=== PATIENT | male | born 2000 | race African-American/Black ===

== ENCOUNTER 2020-03-14 16:53 | Emergency (ER) | payer OTHER, BC, SELFPAY ==
--- NOTE | ~2020-03-14 | XR_ITS ---
EXAMINATION: XR hand RT min 3V INDICATION: Right hand pain, initial encounter TECHNIQUE: Three views of the right hand are obtained. COMPARISON: None FINDINGS: There is acute, traumatic, closed, mildly comminuted fracture at the proximal aspect of the fifth metacarpal. There are 3 mm of separation of the fracture fragments. There is approximately 30 degrees of palmar angulation at the fracture site. Joint space alignment appears normal. Soft tissue swelling is seen near the fracture. No additional acute osseous findings are evident. IMPRESSION: 1. Acute fracture of the proximal fifth metacarpal with angulation. Reviewed, dictated and finalized at location A.
--- NOTE | 2020-03-14 17:11 | ED.UPPEXIN ---
HPI - Extremity Injury (Upper) General Chief Complaint: Extremity Injury, Upper Stated Complaint: right hand injury Time Seen by Provider: 03/14/20 17:11 Source: patient Mode of arrival: ambulatory Limitations: no limitations History of Present Illness HPI narrative: Vernon Bello is a 20 yo male with PMH of heart palpitations who comes to express care for right hand evaluation after slip and fall yesterday. Hand is swelling and pain is rated at 9 out of 10-if pain is unrelieved with [id number] meds Related Data Home Medications Medication Instructions Recorded Confirmed No Home Medications 03/14/20 03/14/20 Allergies Allergy/AdvReac Type Severity Reaction Status Date / Time No Known Allergies Allergy Unverified 05/17/11 18:28 Review of Systems Review of Systems: Narrative: CONSTITUTIONAL: Denies fever, chills, sweats. EYES: Denies visual changes, redness, discharge. ENT: Denies rhinorrhea, congestion, sore throat, otalgia. CARDIOVASCULAR: Denies chest pain, palpitations, edema. RESPIRATORY: Denies dyspnea, wheezing, cough GASTROINTESTINAL: Denies abdominal pain, nausea, vomiting, diarrhea. GENITOURINARY: Denies dysuria, hematuria, abnormal discharge SKIN: Denies rash or itching. NEUROLOGIC: Denies numbness, or focal weakness. PSYCHIATRIC: Denies anxiety or depression. Right hand pain and swelling PMFSH Family History Family History Other Hypertension Social History Social History Smoking status: Current every day smoker Alcohol intake: current Gender identity (if verbalized by the patient): Male Comments At time of signature, I agree with nursing past medical, surgical, social and family history. There is no relevant family history pertinent to the presenting complaint. Noted elevated BP, patient in pain, to follow up with pcp Exam Narrative: Exam Narrative: GENERAL: This is a well-nourished, well-developed patient, in moderate distress. HEAD: normocephalic, atraumatic. EYES: Sclera clear/white. Vision is grossly intact. EARS: External ears normal. Hearing grossly intact. NOSE: External nose normal without nasal discharge, nares without redness, no rhinorrhea. THROAT: Mucous membranes moist, NECK: Neck supple, CARDIOVASCULAR: Regular rate and rhythm without murmurs, gallops, or rubs. RESPIRATORY: Clear to auscultation. Breath sounds equal bilaterally. No wheezes, rales, or rhonchi. GASTROINTESTINAL: Abdomen soft, SKIN: warm, intact with no suspicious lesions or rash, good texture and turgor. NEURO: awake, alert, and oriented to person, place and time. There were no obvious focal neurologic abnormalities. Steady gait EXTREMITIES: Normal range of motion on L. R hand pain with movement - flexion and extension,unable to do complete finger opposition, 2+ swelling dorsum below fingers 4/5 BACK: Nontender without deformity Course Course Emergency Course: Xray of R hand- Vital Signs Vital signs: Vital Signs Temperature 98.9 F 03/14/20 17:12 Pulse Rate 93 03/14/20 17:12 Respiratory Rate 18 03/14/20 17:12 Blood Pressure 152/78 H 03/14/20 17:12 Pulse Oximetry 97 03/14/20 17:12 Temperature 98.9 F 03/14/20 17:12 Pulse Rate 93 03/14/20 17:12 Respiratory Rate 18 03/14/20 17:12 Blood Pressure 152/78 H 03/14/20 17:12 Pulse Oximetry 97 03/14/20 17:12 Procedures Orthopedic Splinting/Casting Injury #1: Splinting/Casting Date: 03/14/20 Splinting/Casting Time: 18:15 Side: right Upper Extremity Injury Location: hand Upper Extremity Immobilizer: ulnar gutter Splint: customized in ED OCL: short arm Pre-Procedure Neuro Vascular Exam: normal Post-Procedure Neuro Vascular Exam: normal Additional Comments: Instructions on care given to patient MDM - Extremity Injury (Upper) Differenti
[2020-03-14 17:12] VITALS: BP 152/78; PULSE 93; RESP 18; TEMP 37.2; O2SAT 97
== END 2020-03-14 18:15 | disposition home or self-care (01) ==
PROVIDERS: Emergency Provider Nurse Practitioner
DX: S62.396A Other fracture of fifth metacarpal bone, right hand, initial encounter for closed fracture (principal); S62.316A Displaced fracture of base of fifth metacarpal bone, right hand, initial encounter for closed fracture
CPT/HCPCS: 29125; 73130; 99214; G0463

== ENCOUNTER 2023-05-02 21:16 | Observation (INO) | payer BC, SELFPAY ==
--- NOTE | ~2023-05-02 | XR_ITS ---
EXAMINATION: XR chest 1V portable Exam Date/Time: 05/02/2023 21:52 CDT HISTORY: syncope vs seizure Comparison: None. RESULT: Lines, tubes, and devices: None. Lungs and pleura: Clear. Cardiomediastinal silhouette: Normal. Other: No acute osseous or upper abdominal finding. IMPRESSION: No acute cardiopulmonary process. Reviewed, dictated and finalized at location K.
--- NOTE | ~2023-05-02 | CT_ITS ---
EXAMINATION: CT brain wo con DATE: 05/02/2023 22:25 INDICATION: seizure? syncope? . TECHNIQUE: Computed tomography (CT) of the head was performed without intravenous contrast. The mA wa s adjusted according to patient size. Iterative reconstruction technique was employed. The dose-lengt h product was 681.00 mGy-cm. COMPARISON: None. FINDINGS: No acute intracranial hemorrhage or extra-axial fluid collection. No hydrocephalus, mass, or herniation. No acute ischemic infarct. Unremarkable dural venous sinus attenuation. No acute osseous abnormality. The aerated spaces are clear. IMPRESSION: No acute intracranial process. Reviewed, dictated and finalized at location K.
--- NOTE | ~2023-05-02 | MR_ITS ---
EXAMINATION: MR brain/brain stem wo con DATE: 05/06/2023 11:21 INDICATION: New onset seizure. TECHNIQUE: Magnetic resonance imaging (MRI) of the brain and brainstem was performed without intraven ous contrast. COMPARISON: Head CT 05/02/2023 FINDINGS: The hippocampi are normal and symmetric. There is no intracranial hemorrhage, acute infarct ion, or abnormal intracranial mass lesion. The ventricles are normal in size. There is mild mucosal t hickening in the ethmoid sinuses. The orbits are normal. The mastoid air cells are normal. IMPRESSION: 1. Normal brain. Reviewed, dictated and finalized at location A. IMPRESSION: 1. Normal brain.
[2023-05-02 21:18] VITALS: BP 99/59; PULSE 98; RESP 15; TEMP 36.4; O2SAT 98
--- NOTE | 2023-05-02 21:22 | ECG_ITS ---
Measurements Intervals [place] Rate: 92 P: 82 [place]: 144 QRS: 86 QRSD: 82 T: 40 QT: 319 QTc: 395 Interpretive Statements SINUS RHYTHM WITH OCCASIONAL VENTRICULAR PREMATURE COMPLEXES ST ELEVATION, CONSIDER ANTEROLATERAL INJURY NO PREVIOUS ECG AVAILABLE FOR COMPARISON Electronically Signed On 05-03-2023 8:57:28 CDT by Marie Gracia M.D.
--- NOTE | 2023-05-02 21:47 | ED.SEIZURE ---
HPI - Seizure General Chief Complaint: Seizure Stated Complaint: witnessed seizure after smoking pot Time Seen by Provider: 05/02/23 21:40 History of Present Illness HPI Narrative: Patient is a 23-year-old male presenting with possible seizure activity. Patient states that he was at a bar and he started smoking a blunt with a friend. States that he felt lightheaded and then he was noted to lose consciousness multiple times. He was told that he may have been having seizure activity. No tongue biting or urinary incontinence. Patient states that he does not remember the events but he remembers waking up. States that he felt confused for about 10 seconds and then returned to baseline. No numbness, weakness, vision or speech changes. No recent fevers, headaches, neck pain or stiffness. He denies any chest pain or shortness of breath. States that he has had palpitations in the past. He reports a similar episode approximately 2 weeks ago for which he was not seen. Currently, he states that he feels normal. He denies any complaints at this time. Related Data Home Medications Medication Instructions Recorded Confirmed No Home Medications 03/14/20 05/03/23 Allergies Allergy/AdvReac Type Severity Reaction Status Date / Time No Known Allergies Allergy Unverified 03/23/20 09:41 Review of Systems Review of Systems: All systems reviewed & are unremarkable except as noted in HPI and below PMFSH Past Medical History Medical History (Updated 05/05/23 @ 17:46 by Isabel Henderson MD) BMI 23.0-23.9, adult H/O cardiac arrhythmia Family History Family History Grandparent Hypertension Social History Social History Years smoked: 4 Smoking status: Current every day smoker Alcohol intake: current Drinks per week: 7 Substance use: current Substance use type: crack/cocaine Lack of Transportation: No Lack of Food: Never True Current Housing: I Have Housing Concerned About Future Housing: No Difficulty Paying Gas/Electric Bills: No Difficulty Paying for Meds: No Currently Unemployed: YES Education: High School Diploma/GED Difficulty w/ Childcare or Family Care: No Living arrangements: with family Gender identity (if verbalized by the patient): Male Spiritual care concerns: No Exam Narrative: GENERAL: Well-appearing, well-nourished, and in no acute distress. Pleasant and cooperative HEAD: Normocephalic, atraumatic. EYES: PERRLA and EOMI. ENT: Nares clear, no rhinorrhea or epistaxis. Mucous membranes moist. NECK: Supple. CHEST: Clear to auscultation. No respiratory distress. 2 healed midline scars anterior chest with keloid formation HEART: Regular rate and rhythm. No murmur heard. Normal peripheral pulses. ABDOMEN: Soft, nontender, nondistended EXTREMITIES: Normal range of motion. No edema. SKIN: Warm, dry, no rash. NEURO: No focal deficits. Alert and oriented x3. 5 out of 5 strength in all extremities, no sensory deficits, no facial droop, no pronator drift PSYCH: Normal mood and affect. Course Vital Signs Vital signs: Vital Signs Temperature 97.6 F 05/02/23 21:18 Pulse Rate 98 05/02/23 21:18 Respiratory Rate 15 05/02/23 21:18 Blood Pressure 99/59 L 05/02/23 21:18 Pulse Oximetry 98 05/02/23 21:18 Oxygen Delivery Room Air 05/02/23 21:18 Temperature 97.3 F L 05/05/23 16:00 Pulse Rate 63 05/05/23 16:00 Respiratory Rate 16 05/05/23 16:00 Blood Pressure 116/68 05/05/23 16:00 Pulse Oximetry 98 05/05/23 16:00 Oxygen Delivery Room Air 05/05/23 04:00 MDM - Seizure MDM Narrative Medical decision making narrative: Patient is a 23-year-old male presenting with possible seizure activity. Blood pressure somewhat soft 90s over 50s. Remainder of vitals are within normal limits. Exam remarkable for the above. Given the descrip
[2023-05-02 21:48] VITALS: BP 92/60; PULSE 68
[2023-05-02 21:49] VITALS: BP 98/67; PULSE 77
[2023-05-02 21:50] VITALS: BP 92/62; PULSE 100
[2023-05-02] MEDS: LACTATED RINGERS 1,000 ML 999 ML IV CONT (21:56)
[2023-05-02 22:02] LABS: Alanine Aminotransferase 21 U/L (6-50); Albumin Level 4.7 g/dL (3.5-5.1); Alkaline Phosphatase 93 U/L (38-126); Anion Gap 10 mmol/L (8-16); Aspartate Amino Transferase 29 U/L (17-59); Blood Urea Nitrogen 11 mg/dL (9-20); Calcium 9.7 mg/dL (8.4-10.2); Carbon Dioxide 27 mmol/L (22-30); Chloride 97 mmol/L (98-107); Estimated CRCL calculation 70 ml/min; Estimated Glomerular Filt Rate > 60; Glucose 113 mg/dL (65-110); Potassium 3.9 mmol/L (3.4-5.0); Sodium 134 mmol/L (137-145)
[2023-05-02 22:11] LABS: Partial Thromboplastin Time 22.7 SECONDS (22.3-36.8); Prothrombin Time 13.5 Seconds (11.1-14.7)
[2023-05-02 22:12] LABS: Basophils Absolute Auto 0.1 K/mm3 (0.0-0.1); Eosinophils Absolute Auto 0.2 K/mm3 (0-0.3); Eosinophils Percent Auto 3.3 % (0-4.4); Hematocrit 43.5 % (42.0-52.0); Hemoglobin 14.5 g/dL (14.0-18.0); Immature Granulocyte Absolute 0.06 K/mm3 (0.00-0.031); Lymphocytes Absolute Auto 1.47 K/mm3 (0.9-3.2); Lymphocytes Percent Auto 24.1 % (18.3-44.2); Mean Corpuscular HGB Conc 33.3 g/dl (32-36); Mean Corpuscular Hemoglobin 32.6 pg (26-34); Mean Corpuscular Volume 97.8 fl (80-100); Mean Platelet Volume 10.1 fl (7.4-10.4); Monocytes Absolute Auto 0.7 K/mm3 (0.1-0.6); Monocytes Percent Auto 11.3 % (2.6-8.5); Neutrophils Absolute Auto 3.6 K/mm3 (1.3-6.7); Neutrophils Percent Auto 59.3 % (45.5-73.1); Platelet Count Result 395 k/mm3 (150-375); Red Blood Count 4.45 M/mm3 (4.6-6.20); Red Cell Distribution Width 12.7 % (11.5-14.5); White Blood Count 6.1 K/mm3 (4.5-10.0)
[2023-05-02 22:21] LABS: Ethanol 33 mg/dL (<10)
[2023-05-02 22:22] LABS: Alanine Aminotransferase 19 U/L (6-50); Albumin Level 4.5 g/dL (3.5-5.1); Alkaline Phosphatase 91 U/L (38-126); Anion Gap 10 mmol/L (8-16); Aspartate Amino Transferase 28 U/L (17-59); Bilirubin,Total 0.9 mg/dL (0.2-1.3); Blood Urea Nitrogen 11 mg/dL (9-20); Calcium 9.6 mg/dL (8.4-10.2); Carbon Dioxide 25 mmol/L (22-30); Chloride 99 mmol/L (98-107); Estimated CRCL calculation 76 ml/min; Estimated Glomerular Filt Rate > 60; Glucose 114 mg/dL (65-110); Potassium 3.9 mmol/L (3.4-5.0); Sodium 134 mmol/L (137-145)
[2023-05-02 22:27] LABS: Lactic Acid Reflex 3.3 mmol/L (0.7-2.0)
[2023-05-02 22:33] LABS: Troponin I < 0.012 ng/mL (0.000-0.034)
[2023-05-02 23:00] VITALS: BP 95/43; PULSE 85; RESP 16; O2SAT 100
[2023-05-02 23:35] LABS: Appearance Urine Cloudy (Clear); Bacteria Urine None Seen /hpf; Bilirubin Urine 2+ (Negative); Blood Urine Negative (Negative); Color Urine Dark Yellow (Yellow); Glucose Urine UA Negative (Negative); Hyaline Casts Urine Present /lpf; Ketones Urine 1+ mg/dL (Negative); Leukocyte Esterase Ur Trace LEU/UL (Negative); Mucus Urine Present /lpf; Nitrate Urine Negative (Negative); Non Pathogenic Casts >20; Protein Urine 1+ mg/dL (Negative); RBC Urine 0-2 /hpf (0-2); Specific Grav Ur 1.028 (1.001-1.035); Squamous Epithelial Cell Urine None seen /hpf (Few); WBC Urine 0-5 /hpf; pH Urine 6.5 (5.0-9.0)
[2023-05-02 23:37] LABS: Add Urine Microscopic? YES
[2023-05-02 23:40] LABS: Amphetamine Screen Urine Negative (Negative); Barbiturate Screen Urine Negative (Negative); Benzodiazepines Screen Urine Negative (Negative); Cannabinoid Screen Urine Positive (Negative); Cocaine Screen Urine Positive (Negative); Methadone Screen Urine Negative (Negative); Opiate Screen Urine Negative (Negative); Phencyclidine Screen Urine Negative (Negative)
[2023-05-03] VITALS (19 sets, daily range): BP systolic 97–122; BP diastolic 54–78; PULSE 61–81; RESP 14–20; TEMP 36.4–36.9; O2SAT 97–100
--- NOTE | 2023-05-03 | ECHO_ITS ---
Patient Info Name: Vernon Bello Age: 23 years : 2000 Gender: Male Ht: 66 in Wt: 149 lbs BSA: 1.78 m2 HR: 76 bpm BP: 117 / 77 mmHg Heart Rhythm: Sinus Rhythm Technical Quality: Good Exam Date: 05/03/2023 2:54 PM Exam Location: [facility] Card Pulmonary Patient Status: Inpatient Admit Date: 05/03/2023 Staff Ordering Physician: Marie Gracia MD (blessing/marily) Financial Services Officer: Radha Pan RDCS Attending Provider: En Barajas MD Referring Physician: Basil BERGERON; Exam Type: CA echo doppler color flow Study Info Indications R55 - Syncope and collapse Complete two-dimensional, color flow and Doppler transthoracic echocardiogram is performed. Summary 1. Complete two-dimensional, color flow and Doppler transthoracic echocardiogram is performed. 2. Left ventricular chamber dimension is normal. 3. Left ventricular systolic function is normal, estimated at 65-70%. 4. Right ventricular systolic function is normal. 5. There is trace mitral valve regurgitation. 6. There is trace tricuspid valve regurgitation. 7. There is trace pulmonic regurgitation. Left Ventricle Left ventricular chamber dimension is normal. Left ventricular systolic function is normal, estimated at 65-70%. There is no increased left ventricular wall thickness. The left ventricular diastolic function is normal. Right Ventricle Right ventricular chamber dimension is normal. Right ventricular systolic function is normal. Left Atria Left atrial chamber dimension is normal. Right Atria Right atrial chamber dimension is normal. Atrial Septum Intact interatrial septum visualized by color flow imaging. Aortic Valve The aortic valve is trileaflet. There is no aortic valve stenosis. There is no aortic valve regurgitation. Pulmonic Valve The pulmonic valve is not well visualized. There is trace pulmonic regurgitation. Mitral Valve There is trace mitral valve regurgitation. Tricuspid Valve There is trace tricuspid valve regurgitation. Pericardium/Pleural There is no pericardial effusion. Inferior Vena Cava Dilated inferior vena cava with >50% collapse upon inspiration consistent with elevated right atrial pressure, 8 mmHg. Aorta The aortic root size at the sinus of Valsalva is normal. Left Ventricular Outflow Tract Name Value Normal LVOT 2D LVOT Diameter 2.0 cm LVOT Doppler LVOT Peak Gradient 3 mmHg LVOT Mean Gradient 2 mmHg LVOT VTI 18 cm LVOT VTI/AV VTI Ratio 0.7 LVOT Stroke Volume 58 ml LVOT CO 3.8 l/min LVOT CI 2.1 l/min/m2 Pulmonic Valve Name Value Normal RVOT Doppler RVOT Peak Gradient 1 mmHg PV Doppler PV Peak Gradient
[2023-05-03] MEDS: LACTATED RINGERS 1,000 ML 999 ML IV CONT (00:28)
[2023-05-03 01:09] LABS: Reflex Lactic Acid Yes or No Add Lactic
[2023-05-03 02:18] LABS: Troponin I < 0.012 ng/mL (0.000-0.034)
--- NOTE | 2023-05-03 02:27 | ECG_ITS ---
Measurements Intervals [place] Rate: 66 P: 56 MA: 153 QRS: 76 QRSD: 90 T: 27 QT: 361 QTc: 381 Interpretive Statements SINUS RHYTHM ST ELEVATION, CONSIDER ANTEROLATERAL INJURY COMPARED TO ECG 05/02/2023 21:28:16 NO SIGNIFICANT CHANGES Electronically Signed On 05-03-2023 9:01:03 CDT by Marie Gracia M.D.
--- NOTE | 2023-05-03 02:46 | ADMGEN ---
This patient, Vernon Bello, was admitted to IMU Room 205-01. Patient/family oriented to hospital policies and general routines including ID bracelet, bed and alarms, visiting hours, pain management, procedures, bathroom and other care routines, personal items, smoking policy, room service/diet, and visiting hours. Information on how to activate the Rapid Response Team has been discussed. Patient/Family are encouraged to report perceived risks to care and to ask questions if they do not understand what they are told or what they should do.
--- NOTE | 2023-05-03 10:38 | PM.CNCAR ---
Assessment and Plan Assessment and plan (1) Syncope: Code(s): R55 - Syncope and collapse Status: Acute Assessment and Plan: Echocardiogram already ordered and pending. Recommend to check orthostatic vital signs as well. Happened shortly after smoking a blunt, cocaine + as well, could be related to drug use. Noted to have seizure like activity at the time of the event. Recommend seizure workup as per the primary team. No significant arrhythmias noted on tele thus far. EKG on admission last night with sinus rhythm with occasional PVCs, ST elevations more noticeably in the anterolateral leads. Although this could be concerning for an acute myocardial injury, patient is without any chest pain, troponins are negative, and repeat EKG 5 hours later is stable and unchanged without any dynamic changes. Given his young age, I suspect these are more likely early repolarization changes rather than from an acute myocardial injury. Will obtain repeat EKG this morning. Echocardiogram pending to evaluate for underlying structural heart disease. Recommend 30 day event monitor at time of discharge. (2) Cocaine abuse: Code(s): F14.10 - Cocaine abuse, uncomplicated Status: Acute Assessment and Plan: Recommend abstinence. (3) Marijuana smoker: Code(s): F12.90 - Cannabis use, unspecified, uncomplicated Status: Acute Assessment and Plan: Recommend abstinence. History of Present Illness History of Present Illness Consult date/time: 05/03/23 10:38 Requesting physician: Isabel Henderson MD Consult reason: Other (Recurrent Syncope) Reason For Visit: Recurrent Syncope Narrative: We are consulted for recurrent syncope. This is a 23-year-old male who presented after syncopal episode. Patient states that last night around 8:15PM, he had smoked a blunt with a friend, and then became lightheaded and felt his vision going out. Patient states he lost consciousness and then would wake up briefly before losing consciousness again. His friends who were with him noticed seizure like activity. Patient reports having 4 syncopal episodes within a minute or so. Patient denies any chest pain, palpitations, shortness of breath. States he was feeling fine before the event. Currently he feels well. Troponins negative x 2. UDS positive for cocaine and cannabinoids. Alcohol level elevated at 33. Patient does admit to using cocaine once a week, last used on Saturday. Review of Systems Review of Systems: All systems reviewed & are unremarkable except as noted in HPI and below (HPI) [facility] Past Medical History Medical History (Updated 05/03/23 @ 10:44 by Marie Gracia MD) BMI 23.0-23.9, adult H/O cardiac arrhythmia Family History Family History Grandparent Hypertension Social History Social History Years smoked: 4 Smoking status: Current every day smoker Alcohol intake: current Drinks per week: 7 Substance use: current Substance use type: crack/cocaine Lack of Transportation: No Lack of Food: Never True Current Housing: I Have Housing Concerned About Future Housing: No Difficulty Paying Gas/Electric Bills: No Difficulty Paying for Meds: No Currently Unemployed: YES Education: High School Diploma/GED Difficulty w/ Childcare or Family Care: No Living arrangements: with family Gender identity (if verbalized by the patient): Male Spiritual care concerns: No Meds Home Medications and Allergies Home Medications Medication Instructions Recorded Confirmed Type No Home Medications 03/14/20 05/03/23 History Allergies Allergy/AdvReac Type Severity Reaction Status Date / Time No Known Allergies Allergy Unverified 03/23/20 09:41 Vital Signs Vital Signs - 24 hr 05/02/23 21:18 05/02/23 21:48 05/02/23 21:49 Temperature 36.4 C Pulse Rate 98 68 7
--- NOTE | 2023-05-03 10:51 | ECG_ITS ---
Measurements Intervals [place] Rate: 71 P: MD: 0 QRS: 70 QRSD: 94 T: -3 QT: 358 QTc: 391 Interpretive Statements SINUS RHYTHM ST ELEVATION, MORE NOTABLY IN THE ANTEROLATERAL LEADS, UNCHANGED COMPARED TO PRIOR EKG. COMPARED TO ECG 05/03/2023 02:27:51 NO SIGNIFICANT CHANGES Electronically Signed On 05-03-2023 14:29:13 CDT by Marie Gracia M.D.
--- NOTE | 2023-05-03 14:23 | PM.IMHP ---
H&P: HPI History of Present Illness Date/Time: 05/03/23 14:23 Chief Complaint: Seizure-like activity Narrative: This is a 23-year-old male presented with switch her like activity. He was at the bar and started smoking of blood with a friend. Stay fell lightheaded and noticed to lose consciousness multiple times. He was told that he may have been having seizure activity. However there was no tongue biting or urinary incontinence. He does not remember the events but remembers waking up. He fell confused for about 10 seconds and return to baseline. Similar episode 2 weeks ago but did not seek medical attention. He has reported history of cardiac arrhythmia. ED evaluation reveal borderline blood pressure. Suspected to be syncope rather than seizure. Possible cardiac arrhythmia and placed on observation. EKG showed ST-elevation in anterolateral leads T-wave inversion in inferior leads serial EKG has been similar. Suspected to be early repolarization changes and rather acute myocardial injury given negative troponin lactic acid was elevated at 3.3 improved with hydration. Serial troponin was negative. Urinalysis negative for infection. Urine drug screen positive for cocaine and cannabinoids. Chest x-ray no acute cardiopulmonary process. Head CT was done which showed no acute process. He has been admitted in this setting. Review of Systems Review of Systems: - CONSTITUTIONAL: Denies weight loss, fever and chills. - HEENT: Denies changes in vision and hearing - RESPIRATORY: Denies SOB and cough. - CV: Denies palpitations and CP. - GI: Denies abdominal pain, nausea, vomiting and diarrhea. - : Denies dysuria and urinary frequency. - MSK: Denies myalgia and joint pain. - SKIN: Denies rash and pruritus. - NEUROLOGICAL: Denies headache and syncope. - PSYCHIATRIC: Denies recent changes in mood. Denies anxiety and depression. [facility] Past Medical History Medical History (Updated 05/03/23 @ 10:44 by Marie Gracia MD) BMI 23.0-23.9, adult H/O cardiac arrhythmia Family History Family History Grandparent Hypertension Social History Social History Years smoked: 4 Smoking status: Current every day smoker Alcohol intake: current Drinks per week: 7 Substance use: current Substance use type: crack/cocaine Lack of Transportation: No Lack of Food: Never True Current Housing: I Have Housing Concerned About Future Housing: No Difficulty Paying Gas/Electric Bills: No Difficulty Paying for Meds: No Currently Unemployed: YES Education: High School Diploma/GED Difficulty w/ Childcare or Family Care: No Living arrangements: with family Gender identity (if verbalized by the patient): Male Spiritual care concerns: No Meds Home Medications and Allergies Home Medications Medication Instructions Recorded Confirmed Type No Home Medications 03/14/20 05/03/23 History Allergies Allergy/AdvReac Type Severity Reaction Status Date / Time No Known Allergies Allergy Unverified 03/23/20 09:41 Vital Signs Vital Signs - 24 hr 05/02/23 21:18 05/02/23 21:48 05/02/23 21:49 Temperature 97.6 F Pulse Rate 98 68 77 Respiratory Rate 15 Blood Pressure 99/59 L 92/60 L 98/67 L Pulse Oximetry 98 Oxygen Delivery Room Air 05/02/23 21:50 05/02/23 23:00 05/03/23 00:00 Temperature Pulse Rate 100 85 76 Respiratory Rate 16 20 Blood Pressure 92/62 L 95/43 L 97/64 L Pulse Oximetry 100 99 Oxygen Delivery 05/03/23 02:33 05/03/23 02:45 05/03/23 03:13 Temperature 97.5 F L Pulse Rate 77 70 76 Respiratory Rate 16 18 Blood Pressure 122/62 115/76 Pulse Oximetry 99 100 Oxygen Delivery 05/03/23 03:14 05/03/23 04:00 05/03/23 06:00 Temperature 97.5 F L Pulse Rate 77 71 Respiratory Rate 18 Blood Pressure 122/75 Pulse Oximetry 100 Oxy
[2023-05-04] VITALS (16 sets, daily range): BP systolic 111–139; BP diastolic 69–74; PULSE 55–78; RESP 14–20; TEMP 36.3–36.9; O2SAT 99–100
[2023-05-04 04:37] LABS: Basophils Percent Auto 0.9 % (0.2-1.2); Eosinophils Absolute Auto 0.4 K/mm3 (0-0.3); Eosinophils Percent Auto 8.5 % (0-4.4); Hematocrit 45.2 % (42.0-52.0); Hemoglobin 14.7 g/dL (14.0-18.0); Immature Granulocyte Absolute 0.02 K/mm3 (0.00-0.031); Immature Granulocyte Percent A 0.4 % (0-0.5); Lymphocytes Absolute Auto 1.84 K/mm3 (0.9-3.2); Lymphocytes Percent Auto 40.2 % (18.3-44.2); Mean Corpuscular HGB Conc 32.5 g/dl (32-36); Mean Corpuscular Hemoglobin 32.3 pg (26-34); Mean Corpuscular Volume 99.3 fl (80-100); Mean Platelet Volume 10.4 fl (7.4-10.4); Monocytes Absolute Auto 0.6 K/mm3 (0.1-0.6); Monocytes Percent Auto 13.5 % (2.6-8.5); Neutrophils Absolute Auto 1.7 K/mm3 (1.3-6.7); Neutrophils Percent Auto 36.5 % (45.5-73.1); Platelet Count Result 330 k/mm3 (150-375); Red Blood Count 4.55 M/mm3 (4.6-6.20); Red Cell Distribution Width 12.4 % (11.5-14.5); White Blood Count 4.6 K/mm3 (4.5-10.0)
[2023-05-04 04:47] LABS: Alanine Aminotransferase 17 U/L (6-50); Albumin Level 4.3 g/dL (3.5-5.1); Alkaline Phosphatase 74 U/L (38-126); Anion Gap 5 mmol/L (8-16); Aspartate Amino Transferase 23 U/L (17-59); Bilirubin,Total 0.5 mg/dL (0.2-1.3); Blood Urea Nitrogen 9 mg/dL (9-20); Calcium 9.1 mg/dL (8.4-10.2); Carbon Dioxide 28 mmol/L (22-30); Chloride 101 mmol/L (98-107); Estimated CRCL calculation 86 ml/min; Estimated Glomerular Filt Rate > 60; Glucose 92 mg/dL (65-110); Potassium 3.9 mmol/L (3.4-5.0); Sodium 134 mmol/L (137-145)
--- NOTE | 2023-05-04 10:32 | PM.PNCARD ---
Progress Note: A&P Assessment and Plan (1) Syncope: Code(s): R55 - Syncope and collapse Status: Acute Assessment and Plan: Echocardiogram is unremarkable Recommend to check orthostatic vital signs as well. Happened shortly after smoking a blunt, cocaine + as well, could be related to drug use. Noted to have seizure like activity at the time of the event. Recommend seizure workup as per the primary team. Echocardiogram reviewed as well as cardiac monitor technician showing no arrhythmia ST elevation noted on EKGs are unchanged also. Recommend 30 day event monitor at time of discharge. (2) Cocaine abuse: Code(s): F14.10 - Cocaine abuse, uncomplicated Status: Acute Assessment and Plan: Counseling performed (3) Marijuana smoker: Code(s): F12.90 - Cannabis use, unspecified, uncomplicated Status: Acute Assessment and Plan: Counseling performed Subjective Date/time seen: 05/04/23 10:32 Interval history: This is a 23-year-old male who presented after syncopal episode. Date of service 05/04/2023: He feels fine and denies any chest pain, shortness of breath, syncope, palpitations. Review of Systems Review of Systems: All systems reviewed & are unremarkable except as noted in HPI and below Constitutional: Constitutional: Denies body ache(s) Cardiovascular: Cardiovascular: Denies chest pain and Denies palpitations Respiratory: Respiratory: Denies dyspnea on exertion Gastrointestinal: Gastrointestinal: Denies abdominal pain Genitourinary: Genitourinary: Denies hematuria Psychiatric: Psychiatric: Denies anxiety Exam Const: General: comfortable and no acute distress HENMT: Mouth: Yes moist mucous membranes Eyes: General: appearance normal, both eyes and all related structures Sclera: sclerae normal Neck: Neck: supple Resp: Effort & Inspection: normal respiratory effort Auscultation: clear to auscultation bilaterally Cardio: Rate: regular rate Rhythm: regular rhythm Heart sounds: no murmurs Skin: General skin exam: normal color Neuro: Speech: normal speech Psych: Mental Status: mental status grossly normal Affect: normal affect Objective Data Vital Signs Vital Signs: Vital Signs - 24 hr 05/03/23 11:45 05/03/23 12:00 05/03/23 12:00 Temperature 36.6 C Pulse Rate 72 76 Respiratory Rate 16 Blood Pressure 117/77 Pulse Oximetry 99 Oxygen Delivery Room Air 05/03/23 14:00 05/03/23 16:00 05/03/23 16:00 Temperature Pulse Rate 73 66 Respiratory Rate Blood Pressure Pulse Oximetry Oxygen Delivery Room Air 05/03/23 16:00 05/03/23 18:00 05/03/23 19:47 Temperature 36.6 C 36.9 C Pulse Rate 61 70 69 Respiratory Rate 16 16 Blood Pressure 121/72 112/78 Pulse Oximetry 100 100 Oxygen Delivery 05/03/23 20:00 05/03/23 20:00 05/03/23 22:00 Temperature Pulse Rate 72 79 Respiratory Rate Blood Pressure Pulse Oximetry Oxygen Delivery Room Air 05/03/23 23:40 05/04/23 00:00 05/04/23 00:00 Temperature 36.6 C Pulse Rate 70 72 Respiratory Rate 18 Blood Pressure 108/71 Pulse Oximetry 100 Oxygen Delivery Room Air 05/03/23 21:35 05/04/23 02:00 05/04/23 04:00 Temperature 36.5 C Pulse Rate 67 55 L Respiratory Rate 18 Blood Pressure 118/70 Pulse Oximetry 97 100 Oxygen Delivery Room Air 05/04/23 04:00 05/04/23 04:00 05/04/23 06:00 Temperature Pulse Rate 60 64 Respiratory Rate Blood Pressure Pulse Oximetry Oxygen Delivery Room Air 05/04/23 07:36 05/04/23 08:00 05/04/23 08:00 Temperature 36.6 C Pulse Rate 64 64 Respiratory Rate 16 Blood Pressure 111/70 Pulse Oximetry 100 100 Oxygen Delivery Room Air 05/04/23 10:00 Temperature Pulse Rate 78 Respiratory Rate Blood Pressure Pulse Oximetry Oxygen Delivery ECHO:2. Left ventricular chamber dimension is normal. ? 3. Left ventricular systolic function is normal,
--- NOTE | 2023-05-04 10:51 | PC.NURSE ---
Discussed patient plan of care with patient's mother,Dr. Grider and Margaret, Professor Of Marketing.
--- NOTE | 2023-05-04 16:36 | PM.IMPN ---
Progress Note: A&P Assessment and Plan (1) Marijuana smoker: Code(s): F12.90 - Cannabis use, unspecified, uncomplicated Status: Acute (2) Cocaine abuse: Code(s): F14.10 - Cocaine abuse, uncomplicated Status: Acute (3) Syncope: Code(s): R55 - Syncope and collapse Status: Acute (4) Heart palpitations: Code(s): R00.2 - Palpitations Status: Acute Plan This is a 23-year-old male presented with switch her like activity. He was at the bar and started smoking of blood with a friend. Stay fell lightheaded and noticed to lose consciousness multiple times. He was told that he may have been having seizure activity. However there was no tongue biting or urinary incontinence. He does not remember the events but remembers waking up. He fell confused for about 10 seconds and return to baseline. Similar episode 2 weeks ago but did not seek medical attention. He has reported history of cardiac arrhythmia. ED evaluation reveal borderline blood pressure. Suspected to be syncope rather than seizure. Possible cardiac arrhythmia and placed on observation. EKG showed ST-elevation in anterolateral leads T-wave inversion in inferior leads serial EKG has been similar. Suspected to be early repolarization changes and rather acute myocardial injury given negative troponin lactic acid was elevated at 3.3 improved with hydration. Serial troponin was negative. Urinalysis negative for infection. Urine drug screen positive for cocaine and cannabinoids. Chest x-ray no acute cardiopulmonary process. Head CT was done which showed no acute process. He has been admitted in this setting. Echo reviewed. He will need a 30 day event monitor at discharge. Also get EEG to further evaluate for possible seizure. These are pending. He is planned to go to rehab facility after discharge. Continue to monitor on telemetry plan to do EEG on Saturday and 30 day monitor prior to discharge Subjective Date/time seen: 05/04/23 16:36 Interval history: Feels fine no new complaints clinical research monitor reviewed Review of Systems Review of Systems: All systems reviewed & are unremarkable except as noted in HPI and below Exam Narrative: GENERAL: Well-appearing, well-nourished, and in no acute distress.? Pleasant and cooperative HEAD: Normocephalic, atraumatic. EYES: PERRLA and EOMI. ENT: Nares clear, no rhinorrhea or epistaxis.? Mucous membranes moist. NECK: Supple. CHEST: Clear to auscultation.? No respiratory distress.? 2 healed midline scars anterior chest with keloid formation HEART: Regular rate and rhythm.? No murmur heard.? Normal peripheral pulses. ABDOMEN: Soft, nontender, nondistended EXTREMITIES: Normal range of motion.? No edema. SKIN: Warm, dry, no rash. NEURO: No focal deficits.? Alert and oriented x3.? 5 out of 5 strength in all extremities, no sensory deficits, no facial droop, no pronator drift PSYCH: Normal mood and affect. Objective Data Vital Signs Vital Signs: Vital Signs - 24 hr 05/03/23 18:00 05/03/23 19:47 05/03/23 20:00 Temperature 98.5 F Pulse Rate 70 69 72 Respiratory Rate 16 Blood Pressure 112/78 Pulse Oximetry 100 Oxygen Delivery 05/03/23 20:00 05/03/23 22:00 05/03/23 23:40 Temperature 97.8 F Pulse Rate 79 70 Respiratory Rate 18 Blood Pressure 108/71 Pulse Oximetry 100 Oxygen Delivery Room Air 05/04/23 00:00 05/04/23 00:00 05/03/23 21:35 Temperature Pulse Rate 72 Respiratory Rate Blood Pressure Pulse Oximetry 97 Oxygen Delivery Room Air Room Air 05/04/23 02:00 05/04/23 04:00 05/04/23 04:00 Temperature 97.7 F Pulse Rate 67 55 L 60 Respiratory Rate 18 Blood Pressure 118/70 Pulse Oximetry 100 Oxygen Delivery 05/04/23 04:00 05/04/23 06:00 05/04/23 07:36 Temperature 97.9 F Pulse Rate 64 64 Respiratory Rate 16 Blood Pressure 111/70 Pulse Oximetry 100 Oxygen Delivery Room Air 05/04/23 08:00
[2023-05-05] VITALS (15 sets, daily range): BP systolic 116–138; BP diastolic 60–80; PULSE 59–86; RESP 16–20; TEMP 36.2–36.6; O2SAT 98–100
--- NOTE | 2023-05-05 10:48 | PM.PNCARD ---
Progress Note: A&P Assessment and Plan (1) Syncope: Code(s): R55 - Syncope and collapse Status: Acute Assessment and Plan: Echocardiogram is unremarkable Recommend to check orthostatic vital signs as well. Happened shortly after smoking a blunt, cocaine + as well, could be related to drug use. Noted to have seizure like activity at the time of the event. Recommend seizure workup as per the primary team. satellite project site monitor personally reviewed showing no acute arrhythmia or pauses Recommend 30 day event monitor at time of discharge. (2) Cocaine abuse: Code(s): F14.10 - Cocaine abuse, uncomplicated Status: Acute Assessment and Plan: Counseling performed (3) Marijuana smoker: Code(s): F12.90 - Cannabis use, unspecified, uncomplicated Status: Acute Assessment and Plan: Counseling performed Subjective Date/time seen: 05/05/23 10:48 Interval history: This is a 23-year-old male who presented after syncopal episode. Date of service 05/04/2023: He feels fine and denies any chest pain, shortness of breath, syncope, palpitations. Date of service 05/05/2023: No arrhythmia noted on telemetry monitoring. Feels okay. No chest pain shortness breath Review of Systems Review of Systems: All systems reviewed & are unremarkable except as noted in HPI and below Constitutional: Constitutional: Denies body ache(s) Cardiovascular: Cardiovascular: Denies chest pain, Denies palpitations and Denies dyspnea on exertion Respiratory: Respiratory: Denies dyspnea on exertion Gastrointestinal: Gastrointestinal: Denies abdominal pain Genitourinary: Genitourinary: Denies hematuria Psychiatric: Psychiatric: Denies anxiety Endocrine: Endocrine: Denies palpitations Exam Const: General: comfortable and no acute distress HENMT: Mouth: Yes moist mucous membranes Eyes: General: appearance normal, both eyes and all related structures Sclera: sclerae normal Neck: Neck: supple Resp: Effort & Inspection: normal respiratory effort Auscultation: clear to auscultation bilaterally Cardio: Rate: regular rate Rhythm: regular rhythm Heart sounds: no murmurs Skin: General skin exam: normal color Neuro: Speech: normal speech Psych: Mental Status: mental status grossly normal Affect: normal affect Objective Data Vital Signs Vital Signs: Vital Signs - 24 hr 05/04/23 11:35 05/04/23 12:00 05/04/23 12:00 Temperature 36.9 C Pulse Rate 77 75 Respiratory Rate 14 Blood Pressure 114/74 Pulse Oximetry 100 100 Oxygen Delivery Room Air 05/04/23 14:00 05/04/23 15:50 05/04/23 16:00 Temperature 36.3 C L Pulse Rate 59 L 65 65 Respiratory Rate 14 Blood Pressure 119/69 Pulse Oximetry 100 Oxygen Delivery 05/04/23 16:00 05/04/23 18:00 05/04/23 20:00 Temperature 36.6 C Pulse Rate 67 63 Respiratory Rate 18 Blood Pressure 122/73 Pulse Oximetry 100 99 Oxygen Delivery Room Air 05/04/23 23:40 05/04/23 20:00 05/04/23 22:00 Temperature 36.8 C Pulse Rate 66 61 62 Respiratory Rate 20 Blood Pressure 139/73 Pulse Oximetry 100 Oxygen Delivery 05/04/23 20:00 05/05/23 00:00 05/05/23 00:00 Temperature Pulse Rate 73 Respiratory Rate Blood Pressure Pulse Oximetry 100 99 Oxygen Delivery Room Air Room Air 05/05/23 02:00 05/05/23 04:00 05/05/23 04:00 Temperature 36.4 C L Pulse Rate 76 63 64 Respiratory Rate 18 Blood Pressure 121/60 Pulse Oximetry 100 Oxygen Delivery 05/05/23 04:00 05/05/23 06:00 05/05/23 08:00 Temperature 36.4 C L Pulse Rate 60 59 L Respiratory Rate 18 Blood Pressure 122/77 Pulse Oximetry 100 100 Oxygen Delivery Room Air Intake/Output Intake/Output: Intake & Output 05/02/23 05/03/23 05/04/23 05/05/23 23:59 23:59 23:59 23:59 Intake Total 1000 [id number] Output Total 500 Balance 1000 2984 [id number] Meds/Results Medications: Active Medications
--- NOTE | 2023-05-05 14:33 | PM.IMPN ---
Progress Note: A&P Assessment and Plan (1) Marijuana smoker: Code(s): F12.90 - Cannabis use, unspecified, uncomplicated Status: Acute (2) Cocaine abuse: Code(s): F14.10 - Cocaine abuse, uncomplicated Status: Acute (3) Syncope: Code(s): R55 - Syncope and collapse Status: Acute (4) Heart palpitations: Code(s): R00.2 - Palpitations Status: Acute Plan This is a 23-year-old male presented with switch her like activity. He was at the bar and started smoking of blood with a friend. Stay fell lightheaded and noticed to lose consciousness multiple times. He was told that he may have been having seizure activity. However there was no tongue biting or urinary incontinence. He does not remember the events but remembers waking up. He fell confused for about 10 seconds and return to baseline. Similar episode 2 weeks ago but did not seek medical attention. He has reported history of cardiac arrhythmia. ED evaluation reveal borderline blood pressure. Suspected to be syncope rather than seizure. Possible cardiac arrhythmia and placed on observation. EKG showed ST-elevation in anterolateral leads T-wave inversion in inferior leads serial EKG has been similar. Suspected to be early repolarization changes and rather acute myocardial injury given negative troponin lactic acid was elevated at 3.3 improved with hydration. Serial troponin was negative. Urinalysis negative for infection. Urine drug screen positive for cocaine and cannabinoids. Chest x-ray no acute cardiopulmonary process. Head CT was done which showed no acute process. He has been admitted in this setting. Echo reviewed. He will need a 30 day event monitor at discharge. Also get EEG to further evaluate for possible seizure. These are pending. He is planned to go to rehab facility after discharge. Continue to monitor on telemetry plan to do EEG on Saturday and 30 day monitor prior to discharge . Will have Neurology see him tomorrow Subjective Date/time seen: 05/05/23 14:33 Interval history: No new complaints. No arrhythmias. Telemetry reviewed. Denies any chest pain or shortness of breath. Review of Systems Review of Systems: All systems reviewed & are unremarkable except as noted in HPI and below Exam Narrative: GENERAL: Well-appearing, well-nourished, and in no acute distress.? Pleasant and cooperative HEAD: Normocephalic, atraumatic. EYES: PERRLA and EOMI. ENT: Nares clear, no rhinorrhea or epistaxis.? Mucous membranes moist. NECK: Supple. CHEST: Clear to auscultation.? No respiratory distress.? 2 healed midline scars anterior chest with keloid formation HEART: Regular rate and rhythm.? No murmur heard.? Normal peripheral pulses. ABDOMEN: Soft, nontender, nondistended EXTREMITIES: Normal range of motion.? No edema. SKIN: Warm, dry, no rash. NEURO: No focal deficits.? Alert and oriented x3.? 5 out of 5 strength in all extremities, no sensory deficits, no facial droop, no pronator drift PSYCH: Normal mood and affect. Objective Data Vital Signs Vital Signs: Vital Signs - 24 hr 05/04/23 15:50 05/04/23 16:00 05/04/23 16:00 Temperature 97.4 F L Pulse Rate 65 65 Respiratory Rate 14 Blood Pressure 119/69 Pulse Oximetry 100 100 Oxygen Delivery Room Air 05/04/23 18:00 05/04/23 20:00 05/04/23 23:40 Temperature 97.8 F 98.3 F Pulse Rate 67 63 66 Respiratory Rate 18 20 Blood Pressure 122/73 139/73 Pulse Oximetry 99 100 Oxygen Delivery 05/04/23 20:00 05/04/23 22:00 05/04/23 20:00 Temperature Pulse Rate 61 62 Respiratory Rate Blood Pressure Pulse Oximetry 100 Oxygen Delivery Room Air 05/05/23 00:00 05/05/23 00:00 05/05/23 02:00 Temperature Pulse Rate 73 76 Respiratory Rate Blood Pressure Pulse Oximetry 99 Oxygen Delivery Room Air 05/05/23 04:00 05/05/23 04:00 05/05/23 04:00 Temperature 97.5 F L Pulse Rate 63 64 Respiratory Rate
[2023-05-06] VITALS (10 sets, daily range): BP systolic 113–127; BP diastolic 68–90; PULSE 54–98; RESP 17–20; TEMP 36.6–36.9; O2SAT 100
--- NOTE | 2023-05-06 09:06 | WPDNEUROLOGY ---
Neurology EEG Report General Information Date of Study: 05/06/23 TEST Routine EEG DIAGNOSIS Seizure CONDITION OF RECORDING Awake, drowsy, asleep EEG NUMBER [id number] CLINICAL HISTORY Patient had an episode of seizure-like activity described as recurrent loss of consciousness with convulsing of the extremities. His urine drug screen was positive for cocaine and cannabinoids. He has no prior history of seizures. EEG DESCRIPTION During the awake state with eyes closed the background consists of 10 Hz posterior dominant rhythm which attenuates appropriately with eye opening. The recording is continuous. There is a well developed anterior-posterior gradient. No significant asymmetries of background activities are noted. With drowsiness there is waxing and waning of the dominant rhythm with eventual replacement by a mixture of beta, alpha, and theta activity. As the patient enters stage II sleep, symmetrical spindles and K-complexes are present. Arousal is unremarkable. There are no epileptiform discharges or seizures during this recording. Hyperventilation and photic stimulation were not performed. IMPRESSION This is a normal routine EEG recorded in awake and asleep states. There are no electrographic seizures identified, nor are there any epileptiform discharges. Please note that a normal EEG cannot exclude a seizure disorder. Clinical correlation is recommended.
--- NOTE | 2023-05-06 09:50 | WPDNEURCNPN ---
Assessment and Plan Assessment and plan (1) Seizure-like activity: Code(s): R56.9 - Unspecified convulsions Status: Acute (2) Marijuana smoker: Code(s): F12.90 - Cannabis use, unspecified, uncomplicated Status: Acute (3) Cocaine abuse: Code(s): F14.10 - Cocaine abuse, uncomplicated Status: Acute Plan Mr. Bello is a 23 year old male with a history of substance use presenting due to episodes of loss of consciousness, raising concern for possible seizures vs syncope. His routine EEG is normal. Even could have been provoked by underlying drug use. He does not need preventative seizure medications at this time. Discussed no driving or operating heavy machinery until he is seizure free for at least six months. Will need MRI brain due rule out structural region for possible seizure (especially in setting of cocaine use). Consult date: 05/06/23 Reason for consult: Seizure-like activity HPI: Vernon Marvin Bello is a 23 year old male with a history of polysubstance use presenting for evaluation of seizure-like activity. Patient reports he was smoking a blunt with a friend when all of a suddenly he felt warm and then lost consciousness shortly afterwards. He has no recollection of what happened, but when he regained consciousness, his friend told him that he had a seizure. A few seconds after the initial episode, he had another episode of loss of consciousness. There was no tongue biting or urinary incontinence. He was confused for about ten seconds and then returned to baseline. Patient denies any prior history of seizure. When he was taken to [facility], he was evaluated by Cardiology who recommended event monitor. UDS was positive for cocaine and cannabinoids. CT head was negative for acute process. Routine EEG is normal. Patient denies any family history of seizures. Review of Systems Constitutional: Constitutional: Denies chills, Denies fever(s) and Denies weight loss Eyes: Eyes: Denies diplopia and Denies loss of vision ENT: Denies dizziness, Denies hearing loss and Denies tinnitus Cardiovascular: Cardiovascular: Denies chest pain, Denies syncope and Denies dyspnea Respiratory: Respiratory: Denies cough, Denies dyspnea and Denies wheezing Gastrointestinal: Gastrointestinal: Denies abdominal pain, Denies change in bowel habits and Denies vomiting Genitourinary: Genitourinary: Denies urinary incontinence Musculoskeletal: Musculoskeletal: Denies arthralgias and Denies joint swelling Integumentary/Breasts: Skin/Breast: Denies new lesions and Denies rash Neurologic: Reports as per HPI, Denies dizziness, Denies syncope and Denies loss of vision Psychiatric: Psychiatric: Denies anxiety and Denies depression Endocrine: Endocrine: Denies cold intolerance and Denies heat intolerance Hematologic/Lymphatic: Hematologic/Lymphatic: Denies easy bleeding and Denies easy bruising Allergic/Immunologic: Allergic/Immunologic: Denies no additional allergic/immunologic complaints and Denies wheezing PMFSH Past Medical History Medical History BMI 23.0-23.9, adult H/O cardiac arrhythmia Family History Family History Grandparent Hypertension Social History Social History Years smoked: 4 Smoking status: Current every day smoker Alcohol intake: current Drinks per week: 7 Substance use: current Substance use type: crack/cocaine Lack of Transportation: No Lack of Food: Never True Current Housing: I Have Housing Concerned About Future Housing: No Difficulty Paying Gas/Electric Bills: No Difficulty Paying for Meds: No Currently Unemployed: YES Education: High School Diploma/GED Difficulty w/ Childcare or Family Care: No Living arrangements: with family Gender identity (if verbalized by the patient): Male Spirit
--- NOTE | 2023-05-06 10:45 | PC.NURSE ---
Pt to MRI via wheelchair.
--- NOTE | 2023-05-06 11:22 | PC.NURSE ---
Pt returned from MRI via wheelchair. No issues noted
--- NOTE | 2023-05-06 12:26 | PM.DS ---
DS: Admitting Diagnosis Discharge Date 05/06/2023 Admitting Diagnosis Syncope DS: Discharge Diagnosis Discharge Diagnosis (1) Marijuana smoker: Code(s): F12.90 - Cannabis use, unspecified, uncomplicated Status: Acute (2) Cocaine abuse: Code(s): F14.10 - Cocaine abuse, uncomplicated Status: Acute (3) Syncope: Code(s): R55 - Syncope and collapse Status: Acute (4) Heart palpitations: Code(s): R00.2 - Palpitations Status: Acute DS: Summary Hospital Course Hospital Course: This is a 23-year-old male presented with switch her like activity.? He was at the bar and started smoking of blood with a friend.? Stay fell lightheaded and noticed to lose consciousness multiple times.? He was told that he may have been having seizure activity.? However there was no tongue biting or urinary incontinence.? He does not remember the events but remembers waking up.? He fell confused for about 10 seconds and return to baseline.? Similar episode 2 weeks ago but did not seek medical attention.? He has reported history of cardiac arrhythmia.? ED evaluation reveal borderline blood pressure.? Suspected to be syncope rather than seizure.? Possible cardiac arrhythmia and placed on observation.? EKG showed ST-elevation in anterolateral leads T-wave inversion in inferior leads serial EKG has been similar.? Suspected to be early repolarization changes and rather acute myocardial injury given negative troponin lactic acid was elevated at 3.3 improved with hydration.? Serial troponin was negative.? Urinalysis negative for infection.? Urine drug screen positive for cocaine and cannabinoids.? Chest x-ray no acute cardiopulmonary process.? Head CT was done which showed no acute process.? He has been admitted in this setting.? Echo reviewed.? He will need a 30 day event monitor at discharge which is arranged at discharge.? EGD done which came back negative. These are pending.? He is planned to go to rehab facility after discharge.? Neurology evaluated and recommended brain MRI which was done and was negative. 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 Time Spent with Patient Time attestation: Total time spent providing and/or coordinating discharge services: 35 minutes Exam Narrative: GENERAL: Well-appearing, well-nourished, and in no acute distress.? Pleasant and cooperative HEAD: Normocephalic, atraumatic. EYES: PERRLA and EOMI. ENT: Nares clear, no rhinorrhea or epistaxis.? Mucous membranes moist. NECK: Supple. CHEST: Clear to auscultation.? No respiratory distress.? 2 healed midline scars anterior chest with keloid formation HEART: Regular rate and rhythm.? No murmur heard.? Normal peripheral pulses. ABDOMEN: Soft, nontender, nondistended EXTREMITIES: Normal range of motion.? No edema. SKIN: Warm, dry, no rash. NEURO: No focal deficits.? Alert and oriented x3.? 5 out of 5 strength in all extremities, no sensory deficits, no facial droop, no pronator drift PSYCH: Normal mood and affect. DS: Data Data Completed and Pending Completed studies during hospitalization: Exam Type: ? ? CA echo doppler color flow Study Info Indications ? ? R55 - Syncope and collapse Complete two-dimensional, color flow and Doppler transthoracic echocardiogram is performed. Account #: ? ? [id number] Summary ? 1. Complete two-dimensional, color flow and Doppler transthoracic echocardiogram is performed. ? 2. Left ventricular chamber dimension is normal. ? 3. Left ventricular systolic function is normal, estimated at 65-70%. ? 4. Right ventricular systolic function is normal. ? 5. There is trace mitral valve regurgitation. ? 6. There is trace tricuspid valve regurgitation. ? 7. There is trace pulmonic regurgitation. Left Ventricle ? Left ventricular chamber dimension is normal. ? Left ventricular systolic function is normal, estimated at 65-70%. ? There is no increased left
== END 2023-05-06 16:47 | disposition home or self-care (01) ==
LOC: ANHED 05-03 00:27 → ANHIMU 05-03 04:44
PROVIDERS: Admitting Provider Internal Medicine; Emergency Provider Emergency Medicine; Visit Provider Internal Medicine
DX: F12.90 Cannabis use, unspecified, uncomplicated (principal); F14.10 Cocaine abuse, uncomplicated; R55 Syncope and collapse; R00.2 Palpitations; R56.9 Unspecified convulsions
CPT/HCPCS: 36415; 70450; 70551; 71045; 80053; 80307; 81001; 83605; 83735; 84484; 85025; 85610; 85730; 93005; 93306; 95816; 96360; 96361; 99285; G0378; J7120